=== PATIENT | female | born 1960 | race Two or more races ===

== ENCOUNTER 2020-03-28 14:06 | Emergency (ER) | payer BC, OTHER ==
[~2020-03-28] VITALS: Ht 154.9 cm; Wt 72.6 kg
[2020-03-28 14:19] VITALS: Ht 154.9 cm; Wt 72.6 kg
[2020-03-28 14:52] LABS: BASOPHIL % 0.7 % (0-2); PLATELET COUNT 239 x10^3mcL (130-400); RED CELL DISTRIBUTION WIDTH 13.8 % (11.5-14.5)
[2020-03-28 15:07] LABS: microscopic required? NO
[2020-03-28 15:17] LABS: CALCIUM 9.1 mg/dL (8.5-10.1); CARBON DIOXIDE 31.4 mmol/L (21-32); CHLORIDE SERUM 105 mmol/L (98-107); CREATININE SERUM 0.8 mg/dL (0.6-1.0); GFR1 > 60 mL/min; GLUCOSE SERUM 89 mg/dL (74-106); POTASSIUM SERUM 4.2 mmol/L (3.5-5.1); SODIUM SERUM 143 mmol/L (136-145)
[2020-03-28 15:24] LABS: urine erythrocyte NEGATIVE (NEGATIVE)
[2020-03-28 15:31] LABS: ALBUMIN 3.7 g/dL (3.4-5.0); ALKALINE PHOSPHATASE 78 U/L (46-116); ALT/SGPT 25 U/L (14-59); AST/SGOT 14 U/L (15-37); BILIRUBIN TOTAL 0.52 mg/dL (0.20-1.00); LIPASE 188 IU/L (73-393); T4(THYROXINE) 5.6 ug/dL (4.7-13.3); TOTAL PROTEIN, SERUM 7.8 g/dL (6.4-8.2)
[2020-03-28 15:32] VITALS: BP 148/88
[2020-03-28 15:33] LABS: CHOLESTEROL 242 mg/dL (<200); HDL CHOLESTEROL 63 mg/dL (40-60)
== END 2020-03-28 15:42 | disposition home or self-care (01) ==
LOC: ED 14:06
PROVIDERS: Emergency Medicine
DX: R07.82 Intercostal pain (principal); I10 Essential (primary) hypertension; E78.00 Pure hypercholesterolemia, unspecified
CPT/HCPCS: 36415; 83880; J3301; Q0092